=== PATIENT | female | born 1980 | race American Indian/Alaskan Native ===

== ENCOUNTER 2019-01-21 21:09 | Emergency (ER) | payer OTHER ==
[2019-01-22] MEDS ORDERED: ULTRAM PO ONE (00:44)
[2019-01-22] MEDS ORDERED: BOOSTRIX IM ONE (00:44)
--- NOTE | 2019-01-22 00:47 | Emergency Department Report ---
ED Laceration [facility] - HPI Chief Complaint: Wound/Laceration Stated Complaint: CUT TO RIGHT HAND Time Seen by Provider: 01/22/19 00:43 Occurred When: Today Location: Upper Extremity Severity: mild Tetanus Status: Not up to Date Laceration Symptoms: Yes Pain (4/10), No Foreign Body Sensation, No Numbness, No Weakness Other History: right pinky laceration versus kitchen knife in sink , accidental laceration ED Review of Systems ROS: Stated complaint: CUT TO RIGHT HAND Other details as noted in HPI Constitutional: denies: chills, fever Eyes: denies: eye pain, eye discharge, vision change ENT: denies: ear pain, throat pain Respiratory: denies: cough, shortness of breath, wheezing Cardiovascular: denies: chest pain, palpitations Endocrine: no symptoms reported Gastrointestinal: denies: abdominal pain, nausea, diarrhea Genitourinary: denies: urgency, dysuria, discharge Musculoskeletal: denies: back pain, joint swelling, arthralgia Skin: other (laceration right hand 5th digit ). denies: rash, lesions Neurological: denies: headache, weakness, paresthesias Psychiatric: denies: anxiety, depression Hematological/Lymphatic: denies: easy bleeding, easy bruising ED Past Medical Hx - Past Medical History Previous Medical History?: No - Surgical History Additional Surgical History: wisdom - Medications Home Medications: Home Medications Medication Instructions Recorded Confirmed Last Taken Type cephALEXin [Keflex] 500 mg PO Q8HR 10 Days #30 cap 01/22/19 Unknown Rx traMADol [Ultram] 50 mg PO Q6HR PRN #12 tablet 01/22/19 Unknown Rx Laceration Physical Exam - Exam General: right pabon finger laceration 5ht digit hand irreg, bleeding controlled rom intact no nerve tendon or muscle damage, Vital signs noted. No distress. Alert and acting appropriately. Wound Length (cm): 2 Laceration Location: Upper Extremity Laceration Exam: Yes Normal Distal CMS, No Foreign Body, No Exposed Tendon, Vessel, or Nerve, No Tendon Injury ED Course Vital Signs 01/21/19 21:22 Temperature 98.6 F Pulse Rate 89 Respiratory 18 Rate Blood Pressure 103/76 O2 Sat by Pulse 99 Oximetry - Laceration /Wound Repair Right Finger Wound Location: upper extremity Wound Length (cm): 2 Wound's Depth, Shape: superficial Wound Explored: clean Irrigated w/ Saline (ccs): 20 Betadine Prep?: Yes Anesthesia: 1% Lidocaine (digital block ) Volume Anesthetic (ccs): 1 Wound Debrided: none required Wound Repaired With: sutures Suture Size/Type: 5:0, proline Number of Sutures: 6 (running ) Layer Closure?: No Sterile Dressing Applied?: Yes Progress: Left pinky laceration 2 cm wound irrigated with sterile [id number] mL anesthesia 1% lidocaine plain via digital block explored CMS is intact no nerve muscle or tendon damage and closed with 5-0 Prolene 6 sutures running range of motion remains intact I bleeding is controlled sterile dressing is applied patient given wound care instructions ED Medical Decision Making - Medical Decision Making pinky laceration see procedure note pt given wound care instructions , pt for dc to home will follow up with pcp in 2 day for wound check, 7-10 days for suture repair, pt given boostrix IM, pt verbalized agreement and understanding of discharge plan, pt for dc to home in stable condition at this time. Critical care attestation.: If time is entered above; I have spent that time in minutes in the direct care of this critically ill patient, excluding procedure time. ED Disposition Clinical Impression: Finger laceration Qualifiers: Encounter type: initial encounter Finger: little finger Damage to nail status: unspecified Foreign body presence: without foreign body Laterality: right Qualified Code(s): S61.216A - Laceration without foreign body of right little finger without damage to nail, initial encounter Disposition: DC-01 TO HOME OR SELFCARE Is pt being admited?: No Does the pt Need Aspirin: No Condition: Stable Instructions: Suture Care (ED), Finger Laceration (ED) Prescriptions: cephALEXin [Keflex] 500 mg PO Q8HR 10 Days #30 cap traMADol [Ultram] 50 mg PO Q6HR PRN #12 tablet PRN Reason: Pain Referrals: [facility] [Outside] - 3-5 Days Forms: Work/School Release Form(ED) Time of Disposition: 00:55
[2019-01-22 01:13] VITALS: BP 116/66
== END 2019-01-22 01:12 | disposition home or self-care (01) ==
LOC: ED 21:09
DX: S61.216A Laceration without foreign body of right little finger without damage to nail, initial encounter (principal); W26.0XXA Contact with knife, initial encounter; Y93.89 Activity, other specified; Y92.89 Other specified places as the place of occurrence of the external cause; Y99.8 Other external cause status
CPT/HCPCS: 90471; 90715; 99282